=== PATIENT | female | born 1945 | race Caucasian/White ===

== ENCOUNTER → 2020-10-24 14:54 | Outpatient (CLI) | payer OTHER, SELFPAY ==
--- NOTE | ~2020-10-24 | XR_ITS ---
EXAMINATION: XR foot LT min 3V DATE: 10/24/2020 15:31 INDICATION: Left foot pain TECHNIQUE: Dorsoplantar, lateral, and oblique views of the left foot were obtained. COMPARISON: 07/09/2011 FINDINGS: The bones are osteopenic which limits the sensitivity for fracture however none is seen. De formities in the distal aspects of the second and fifth metatarsals are consistent with healed fractu res. The soft tissues are unremarkable. There is moderate osteoarthritis of the midfoot and in multip le interphalangeal joints. Dorsal and plantar calcaneal enthesophytes are noted. IMPRESSION: 1. No acute osseous abnormality, sensitivity limited by osteopenia.. Reviewed, dictated and finalized at location A. 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
== END ==
DX: S99.922A Unspecified injury of left foot, initial encounter (principal); X58.XXXA Exposure to other specified factors, initial encounter
CPT/HCPCS: 73630

== ENCOUNTER → 2021-04-14 07:53 | Outpatient (CLI) | payer OTHER, SELFPAY ==
--- NOTE | ~2021-04-14 | MR_ITS ---
EXAMINATION: MR foot LT wo con DATE: 04/14/2021 09:39 INDICATION: Left foot pain and swelling. Recent sepsis. TECHNIQUE: Magnetic resonance imaging (MRI) of the left foot was performed without intravenous contra st. Sequences included long axis and short axis TI-weighted FSE and T2-weighted FS FSE and sagittal S TIR FSE and T1-weighted FSE. COMPARISON: Left foot radiographs 10/24/2020 FINDINGS: There is moderate hallux valgus. No acute fracture. There is an old healed fracture of neck of fifth metatarsal. There is severe osteoarthritis of first metatarsophalangeal joint, moderate ost eoarthritis of second tarsometatarsal joint, and mild osteoarthritis of some of the midfoot joints an d interphalangeal joints. There is mild ankle joint osteoarthritis. The Achilles tendon are normal. T he anterior, medial, and lateral ankle tendons are normal. Lisfranc ligament is intact. There is wide spread fatty atrophy of the musculature, severe in the forefoot. There is widespread subcutaneous yung ma. There are small ankle and subtalar joint effusions. IMPRESSION: 1. No evidence of osteomyelitis. 2. Moderate hallux valgus. 3. Polyarticular osteoarthritis. 4. Small ankle and subtalar joint effusions. Reviewed, dictated and finalized at location A.
== END ==
PROVIDERS: Visit Provider Student in an Organized Health Care Education/Training Program
DX: M85.872 Other specified disorders of bone density and structure, left ankle and foot (principal); M20.12 Hallux valgus (acquired), left foot; M19.072 Primary osteoarthritis, left ankle and foot; M25.472 Effusion, left ankle
CPT/HCPCS: 73718

== ENCOUNTER 2021-04-18 09:13 | Outpatient (CLI) | payer OTHER, SELFPAY ==
--- NOTE | ~2021-04-18 | US_ITS ---
EXAMINATION: US venous doppler [facility] DATE: 04/18/2021 10:02 INDICATION: Left lower limb pain. TECHNIQUE: Grayscale ultrasound images without and with compression and Doppler ultrasound images of the left lower extremity veins were obtained. COMPARISON: Ultrasound 02/13/2015 FINDINGS: The visualized portions of left common femoral vein, profunda (deep) femoral vein, femoral vein, popl iteal vein, peroneal veins, posterior tibial veins, and greater saphenous vein outflow are patent. IMPRESSION: 1. No deep venous thrombosis. Reviewed, dictated and finalized at location A.
== END 2021-04-18 09:14 | disposition home or self-care (01) ==
LOC: ANHIMG 09:24
PROVIDERS: PCP Student in an Organized Health Care Education/Training Program; Visit Provider Student in an Organized Health Care Education/Training Program
DX: M79.662 Pain in left lower leg (principal); I82.462 Acute embolism and thrombosis of left calf muscular vein
CPT/HCPCS: 93971

== ENCOUNTER → 2021-06-15 12:53 | Outpatient (CLI) | payer OTHER, SELFPAY ==
--- NOTE | ~2021-06-15 | MM_ITS ---
EXAMINATION: MM screening yazmin BI w anshu HISTORY: Screening mammogram TECHNIQUE: Craniocaudal and mediolateral oblique 3-D tomosynthesis images were obtained and synthetic 2-D images were generated. CAD analysis was submitted and interpreted. COMPARISON: 10/26/2019, 08/14/2018, 05/28/2017 bilateral digital screening mammogram examinations BREAST PARENCHYMAL COMPOSITION: There are scattered areas of fibroglandular density. FINDINGS: There is no evidence of suspicious mass, calcification, or architectural distortion to sugg est malignancy in either breast. There has been no suspicious interval change. IMPRESSION: 1. No mammographic evidence of malignancy. 2. Recommend routine screening mammography in one year. BI-RADS Category 1: Negative Reviewed, dictated and finalized at location A.
== END ==
PROVIDERS: PCP Student in an Organized Health Care Education/Training Program; Visit Provider Registered Nurse
DX: Z12.31 Encounter for screening mammogram for malignant neoplasm of breast (principal)
CPT/HCPCS: 77063; 77067

== ENCOUNTER → 2021-10-31 12:06 | Outpatient (CLI) | payer OTHER, SELFPAY ==
[2021-10-31 12:54] LABS: Estimated Glomerular Filt Rate 26
== END ==
PROVIDERS: PCP Student in an Organized Health Care Education/Training Program; Visit Provider Student in an Organized Health Care Education/Training Program
DX: E27.9 Disorder of adrenal gland, unspecified (principal)
CPT/HCPCS: 99199

== ENCOUNTER → 2021-11-21 12:16 | Outpatient (CLI) | payer OTHER, SELFPAY ==
--- NOTE | ~2021-11-21 | MR_ITS ---
EXAMINATION: MR abdomen wo con INDICATION: Lesion of the adrenal gland TECHNIQUE: Coronal SSFSE ARC, WATER:coronal LAVA-FLEX, Coronal 2D FIESTA FatSat, Axial SSFSE BH ARC, Axial 3D DualEcho BH, Axial SSFSE-IR, Axial DWI b=500, Axial 2D FIESTA FatSat, Axial LAVA ARC, Villatoro l In and Opposed phase LAVA FLEX COMPARISON: 08/11/2018 CONTRAST: None FINDINGS: The liver, spleen, pancreas, and gallbladder are normal. The left adrenal gland is unremark able. There is a stable 2.5 cm mass of the right adrenal gland with loss of signal intensity in some areas. Simple cysts of the kidneys measure up to 2.1 cm on the left. There are cysts with intermediat e T1 and T2 signal intensity which likely reflect proteinaceous cysts however complete characterizati on is limited by the absence of intravenous contrast. There are no pathologically enlarged abdominal lymph nodes. There are no dilated loops of bowel. IMPRESSION: 1. Stable right adrenal mass, most consistent with an adenoma. Reviewed, dictated and finalized at location A. 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
== END ==
PROVIDERS: PCP Student in an Organized Health Care Education/Training Program; Visit Provider Student in an Organized Health Care Education/Training Program
DX: E27.9 Disorder of adrenal gland, unspecified (principal)
CPT/HCPCS: 74181

== ENCOUNTER → 2022-03-26 11:45 | Outpatient (CLI) | payer OTHER, SELFPAY ==
--- NOTE | ~2022-03-26 | US_ITS ---
EXAMINATION: US thyroid DATE: 03/26/2022 12:16 INDICATION: Hyperparathyroidism. TECHNIQUE: Multiple ultrasound images of the thyroid were obtained. COMPARISON: CT cervical spine 02/10/2016 FINDINGS: The right thyroid lobe measures 3.6 x 1.5 x 1.5 cm. The left thyroid lobe measures 3.3 x 1.3 x 1.4 c m. At the inferior aspect of right thyroid lobe, there is a 1.7 cm solid, hypoechoic, wider than coty l nodule with smooth margin without echogenic foci (TI-RADS TR4), stable from 03/12/16. In the right th yroid lobe, there is a 5 mm solid, hypoechoic, wider than tall nodule with smooth margin without echo genic foci (TR4), likely not clinically significant. In the left thyroid lobe, there are two 2 mm nod ules, likely not clinically significant. IMPRESSION: 1. 1.7 cm nodule at the inferior aspect of right thyroid lobe, stable from 02/10/16, likely benign. Giv en the history of hyperparathyroidism, parathyroid scintigraphy is recommended to exclude parathyroid adenoma. Reviewed, dictated and finalized at location A. IMPRESSION: 1. 1.7 cm nodule at the inferior aspect of right thyroid lobe, stable from , likely benign. Given the history of hyperparathyroidism, parathyroid scinti graphy is recommended to exclude parathyroid adenoma.
== END ==
PROVIDERS: PCP Student in an Organized Health Care Education/Training Program
DX: E21.3 Hyperparathyroidism, unspecified (principal)
CPT/HCPCS: 76536

== ENCOUNTER 2022-05-03 12:54 | Outpatient (CLI) | payer OTHER, SELFPAY ==
--- NOTE | ~2022-05-03 | DEXA_ITS ---
Bone Density Report Name: DIVYA BLAND Age: 76 Sex: Female Ethnicity: White Date of : 1945 Indication: hyperparathyroidism; hysterectomy; Referring Provider: JONATAN JOHNSON Study: Bone densitometry was performed. Exam Date: May 03, 2022 Accession number: [id number] Bone Density: Region BMD T-score Z-score Classification AP Spine(L1-L4) 1.092 0.4 3.0 Normal Femoral Neck (Left) 0.592 -2.3 -0.1 Osteopenia Total Hip (Left) 0.818 -1.0 1.0 Normal Femoral Neck (Right) 0.584 -2.4 -0.2 Osteopenia Total Hip (Right) 0.785 -1.3 0.7 Osteopenia Total Hip Mean 0.802 -1.2 0.9 Osteopenia World Health Organization criteria for BMD impression classify patients as: Normal (T-score at or above -1.0), Osteopenia (T-score between -1.0 and -2.5), or Osteoporosis (T-score at or below -2.5). 10-year Fracture Risk(1): Major Osteoporotic Fracture 17% Hip Fracture 5.5% Reported Risk Factors: [place] (), Neck BMD=0.584, BMI=27.2 (1) FRAX(R) Version 3.08. Fracture probability calculated for an untreated patient. Fracture probability may be lower if the patient has received treatment. Clinical Information Provided by Patient: Has used the following medications: Vitamin D Has the following medical conditions: Hyperparathyroidism, Hysterectomy Patient maximum height was 63 Menopause Age: 35 No regular weight bearing exercise Does not regularly consume dairy products Onset of menses at age 11 Number of children 1 Impression: The patient has low bone mass, based on the Right Femoral Neck T-score. The patient has an estimated ten-year risk of hip fracture of 5.5% and an estimated ten-year risk of major fracture of 17%, based on the WHO FRAX algorithm. Discussion: BONE DENSITY IS LOW AT ONE OR MORE SKELETAL SITES. THE PATIENT'S BMD AND CLINICAL RISK FACTORS CONTRIBUTE TO THIS PATIENT'S INCREASED RISK OF FRACTURE. This patient's lowest T-score is low at one or more skeletal sites. It meets the World Health Organization's (WHO) criteria for ?low bone mass? (T-score between -1.0 and -2.5). The patient's 10-year risk of hip fracture as calculated by FRAX exceeds the threshold where pharmacological therapy is recommended by the National Osteoporosis Foundation (NOF). However, all treatment decisions require clinical judgment and consideration of individual patient factors, including patient preferences, comorbidities, previous drug use, risk factors not captured in the FRAX model (e.g., frailty, falls, vitamin D deficiency, increased bone turnover, interval significant decline in bone density) and possible under or overestimation of fracture risk by FRAX. The patient should follow a healthful lifestyle (good nutrition with adequate calcium and vitamin D, and appropriate weight-bearing exercise).
== END 2022-05-03 12:55 | disposition home or self-care (01) ==
LOC: ANHIMG 12:56
PROVIDERS: PCP Student in an Organized Health Care Education/Training Program
DX: E21.3 Hyperparathyroidism, unspecified (principal); M85.89 Other specified disorders of bone density and structure, multiple sites
CPT/HCPCS: 77080

== ENCOUNTER → 2022-08-28 12:21 | Outpatient (CLI) | payer OTHER, SELFPAY ==
--- NOTE | ~2022-08-28 | MM_ITS ---
EXAMINATION: MM screening yazmin BI w anshu HISTORY: Screening mammogram TECHNIQUE: Craniocaudal and mediolateral oblique 3-D tomosynthesis images were obtained and synthetic 2-D images were generated. CAD analysis was submitted and interpreted. COMPARISON: 06/15/2021, 10/26/2019, 08/24/2018 bilateral screening mammogram examinations BREAST PARENCHYMAL COMPOSITION: There are scattered areas of fibroglandular density. FINDINGS: There is no evidence of suspicious mass, calcification, or architectural distortion to sugg est malignancy in either breast. There has been no suspicious interval change. IMPRESSION: 1. No mammographic evidence of malignancy. 2. Recommend routine screening mammography in one year. 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
== END ==
PROVIDERS: PCP Student in an Organized Health Care Education/Training Program; Visit Provider Obstetrics & Gynecology
DX: Z12.31 Encounter for screening mammogram for malignant neoplasm of breast (principal)
CPT/HCPCS: 77063; 77067

== ENCOUNTER 2023-12-30 13:31 | Outpatient (CLI) | payer OTHER, SELFPAY ==
--- NOTE | ~2023-12-30 | MM_ITS ---
EXAMINATION: MM screening yazmin BI w anshu HISTORY: Screening mammogram TECHNIQUE: Craniocaudal and mediolateral oblique 3-D tomosynthesis images were obtained and synthetic 2-D images were generated. CAD analysis was submitted and interpreted. COMPARISON: 08/28/2022, 06/15/2021 bilateral screening mammogram examination BREAST PARENCHYMAL COMPOSITION: The breasts are heterogeneously dense, which may obscure small masses . FINDINGS: There is no evidence of suspicious mass, calcification, or architectural distortion to sugg est malignancy in either breast. There has been no suspicious interval change. IMPRESSION: 1. No mammographic evidence of malignancy. 2. Recommend routine screening mammography in one year. BI-RADS Category 1: Negative Reviewed, dictated and finalized at location A.
== END 2023-12-30 13:32 ==
LOC: MICIMG 13:32
PROVIDERS: PCP Obstetrics & Gynecology; Visit Provider Student in an Organized Health Care Education/Training Program
DX: Z12.31 Encounter for screening mammogram for malignant neoplasm of breast (principal)
CPT/HCPCS: 77063; 77067

== ENCOUNTER 2025-07-28 09:25 | Outpatient (CLI) | payer OTHER, SELFPAY ==
--- NOTE | ~2025-07-28 | DEXA_ITS ---
Bone Density Report Name: DIVYA BLAND Age: 79 Sex: Female Ethnicity: White Date of : 1945 Indication: osteopenia; monitoring treatment; height loss; prior fracture; hysterectomy; Referring Provider: Mica, Elbert Study: Bone densitometry was performed. Exam Date: July 28, 2025 Accession number: [id number] Bone Density: Region BMD T-score Z-score Classification AP Spine(L1, L4) 0.980 -0.5 2.2 Normal Femoral Neck (Right) 0.515 -3.0 -0.6 Osteoporosis Total Hip (Right) 0.655 -2.4 -0.2 Osteopenia World Health Organization criteria for BMD impression classify patients as: Normal (T-score at or above -1.0), Osteopenia (T-score between -1.0 and -2.5), or Osteoporosis (T-score at or below -2.5). 10-year Fracture Risk: FRAX not reported because: Some T-score for Spine Total or Hip Total or Femoral Neck at or below -2.5 Prior hip or vertebral fracture Treated for osteoporosis Previous Exams: -- Region Exam Age BMD T-score BMD Change BMD Change Date g/cm2 vs Baseline vs Previous -- AP Spine (L1,L4) 07/28/2025 79 0.980 -0.5 -10.5%* -6.2%* 05/03/2022 76 1.045 0.1 -4.6%* -4.6%* 09/22/2014 68 1.095 0.5 Total Hip(Right) 07/28/2025 79 0.655 -2.4 -30.5%* -16.6%* 05/03/2022 76 0.785 -1.3 -16.7%* -16.7%* 09/22/2014 68 0.942 0.0 -- *Denotes significance at 95% confidence level, LSC for AP Spine = 0.022 g/cm2, LSC for Total Hip = 0.027 g/cm2 Rate of change results reflect vertebral levels common to all scans Clinical Information Provided by Patient: Have had a previous hip or vertebral fracture Has had a low trauma fracture Is being treated for osteoporosis Has used the following medications: Vitamin D Has the following medical conditions: Hysterectomy Patient maximum height was 62 Menopause Age: 34 No regular weight bearing exercise Does not regularly consume dairy products Onset of menses at age 11 Number of children 1 Impression: The patient has established osteoporosis, based on the Right Femoral Neck T-score and the existence of a prior fracture. The patient has risk factors, including: previous fracture. The BMD for the AP Spine (L1,L4) decreased, changing by -6.2% since the last DXA exam. The BMD for the Total Hip(Right) decreased, changing by -16.6% since the last DXA exam. Discussion: SIGNIFICANT BONE LOSS OBSERVED. Adherence to therapy (including calcium and vitamin D intake) should be assessed. If compliance is not a factor, review management and exclusion of secondary causes of bone loss. It is important to ask patients whether they are taking their medications and to encourage continued and appropriate compliance with their osteoporosis therapies to reduce fracture risk. It is also important to review their risk factors and encourage appropriate calcium and vitamin D intakes, exercise, fall prevention and other lifestyle measures. Follow-Up: Consider a repeat BMD and Vertebral Fracture Assessment (VFA) exam in 2 years or sooner if medically necessary, to reassess this patient's status. Reported by: TAHMINA on 07/28/2025 10:13:00 AM. Reviewed, dictated and finalized at location A.
== END 2025-07-28 09:26 | disposition home or self-care (01) ==
LOC: MICIMG 09:28
PROVIDERS: PCP Obstetrics & Gynecology; Visit Provider Student in an Organized Health Care Education/Training Program
DX: Z78.0 Asymptomatic menopausal state (principal); M97 Periprosthetic fracture around internal prosthetic joint; M81.0 Age-related osteoporosis without current pathological fracture; M85.851 Other specified disorders of bone density and structure, right thigh
CPT/HCPCS: 77080

== ENCOUNTER 2025-09-30 13:33 | Outpatient (CLI) | payer OTHER, SELFPAY ==
--- NOTE | ~2025-09-30 | MM_ITS ---
EXAMINATION: MM screening yazmin BI w anshu HISTORY: Screening TECHNIQUE: Craniocaudal and mediolateral oblique 3-D tomosynthesis images were obtained and synthetic 2-D images were generated. CAD analysis was submitted and interpreted. COMPARISON: Comparison to multiple prior studies sequentially, with oldest reviewed study dated 05/28/2017. BREAST PARENCHYMAL COMPOSITION: Dense: The breasts are heterogeneously dense, which may obscure small masses FINDINGS: There is no evidence of suspicious mass, calcification, or architectural distortion to suggest malignancy in either breast. There has been no suspicious interval change. IMPRESSION: 1. No mammographic evidence of malignancy. 2. Recommend routine screening mammography in one year. BI-RADS Category 1: Negative Reviewed, dictated and finalized at location O. 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
== END 2025-09-30 13:34 | disposition home or self-care (01) ==
LOC: MICIMG 13:34
PROVIDERS: PCP Obstetrics & Gynecology; Visit Provider Student in an Organized Health Care Education/Training Program
DX: Z12.31 Encounter for screening mammogram for malignant neoplasm of breast (principal)
CPT/HCPCS: 77063; 77067